=== PATIENT | female | born 1980 | race Native Hawaiian/Other Pacific Islander ===

== ENCOUNTER 2021-10-20 17:31 | Emergency (ER) | payer SELFPAY ==
[2021-10-20 17:49] VITALS: O2SAT 97
--- NOTE | 2021-10-20 19:00 | ERPHSYRPT ---
- History of Present Illness Time Seen by Provider: 10/20/21 18:56 Source: patient Exam Limitations: no limitations Patient Subjective Stated Complaint: pt here for post nasal drip, cough, aches for about a week, took a home covid test and was negative Triage Nursing Assessment: pt alert, walked in, resp easy, skin w/d/p. no cough at present time. face mask applied Physician History: Patient is a 41-year-old female who presents with a complaint of nasal congestion body aches and a negative COVID test. She stopped smoking recently about 6 weeks ago she has a chronic cough but it is much worse than croup including increased amounts of sputum. Timing/Duration: day(s) (2) Cough Quality/Degree: productive cough, sputum (Yellow) Possible Cause: occasional episodes Modifying Factors: Improves With: coughing Associated Symptoms: lightheadedness, nasal congestion, nasal drainage Allergies/Adverse Reactions: No Known Drug Allergies Allergy (Unverified 10/20/21 17:52) Hx Tetanus, Diphtheria Vaccination/Date Given: No Hx Influenza Vaccination/Date Given: Yes Hx Pneumococcal Vaccination/Date Given: No Immunizations Up to Date: Yes Travel Risk - International Travel Have you traveled outside of the country in past 3 weeks: No - Coronavirus Screening Are you exhibiting any of the following symptoms?: Yes Symptoms: Cough: New Onset Close contact with a COVID-19 positive Pt in past 14-21 Days: No - Vaccine Status Have you recieved a Covid-19 vaccination: No - Review of Systems Constitutional: No Fever, No Chills Eyes: No Symptoms Ears, Nose, & Throat: No Symptoms Respiratory: No Cough, No Dyspnea Cardiac: No Chest Pain, No Edema, No Syncope Abdominal/Gastrointestinal: No Abdominal Pain, No Nausea, No Vomiting, No Diarrhea Genitourinary Symptoms: No Dysuria Musculoskeletal: No Back Pain, No Neck Pain Skin: No Rash Neurological: No Dizziness, No Focal Weakness, No Sensory Changes Psychological: No Symptoms Endocrine: No Symptoms All Other Systems: Reviewed and Negative - Past Medical History Pertinent Past Medical History: No - Past Surgical History Past Surgical History: Yes Musculoskeletal: Orthopedic Surgery Female Surgical History: Section, Other Other Surgical History: foot - Social History Smoking Status: Former smoker Exposure to second hand smoke: No Drug Use: marijuana Patient Lives Alone: Yes - Female History Hx Last Menstrual Period: ablation Hx Now: No - Nursing Vital Signs Nursing Vital Signs: Initial Vital Signs Temperature 96.8 F 10/20/21 17:48 Pulse Rate 78 10/20/21 17:48 Respiratory Rate 18 10/20/21 17:48 Blood Pressure 185/109 10/20/21 17:48 O2 Sat by Pulse Oximetry 97 10/20/21 17:48 Pain Scale Pain Intensity 0 - Physical Exam General Appearance: no apparent distress, alert Eye Exam: PERRL/EOMI, eyes nml inspection Ears, Nose, Throat Exam: normal ENT inspection, TMs normal, pharynx normal, moist mucous membranes Neck Exam: normal inspection, non-tender, supple, full range of motion Respiratory Exam: normal breath sounds, rhonchi, wheezing, No respiratory distress Cardiovascular Exam: regular rate/rhythm, normal heart sounds Gastrointestinal/Abdomen Exam: soft, No tenderness Back Exam: normal inspection, No CVA tenderness, No vertebral tenderness Extremity Exam: normal inspection, normal range of motion Neurologic Exam: alert, oriented x 3, cooperative, normal mood/affect, sensation nml, No motor deficits Skin Exam: normal color, warm, dry, No rash Lymphatic Exam: No adenopathy SpO2: 97 - Course Nursing assessment & vital signs reviewed: Yes - Progress Progress: improved Air Movement: good Blood Culture(s) Obtained: No Antibiotics given: Yes - Departure Departure Disposition: Home Clinical Impression: Bronchitis Condition: Stable Critical Care Time: No Referrals: DOCTOR,NO FAMILY [Primary Care Provider] - Follow up/PCP as directed Instructions: Acute Bronchitis, Adult (DC) Prescriptions: Cephalexin Mh 500 mg [Keflex 500 mg] 500 mg PO QID #40 cap
[2021-10-20 19:18] VITALS: BP 149/109; PULSE 70
== END 2021-10-20 19:20 | disposition home or self-care (01) ==
LOC: ED 17:31
DX: J40 Bronchitis, not specified as acute or chronic (principal); R09.81 Nasal congestion; M79.10 Myalgia, unspecified site; R05.3 Chronic cough; R42 Dizziness and giddiness; Z28.310 Unvaccinated for COVID-19
CPT/HCPCS: 99281